=== PATIENT | male | born 1995 | race Caucasian/White ===

== ENCOUNTER 2018-05-23 15:22 | Emergency (ER) | payer BC ==
[2018-05-23] MEDS ORDERED: Meclizine 12.5 MG Tab PO ONE (16:03)
--- NOTE | 2018-05-23 21:12 | PN ---
DATE OF VISIT: SUBJECTIVE: The patient is a 22-year-old male who comes in today with a chief complaint of feeling funny. He has a hard time describing how he feels. Yesterday, he was out fishing. He notes he drank an estimated 25 beers, 5 shots of Rumple Minze and 6 vodka red bull shots. The patient notes he got up this morning, he threw up 3 times. He has drank 3 bottles of water to rehydrate himself, but he still feels funny. His friends are all telling him he might be having a heart attack that he has a little bit of pain in the left shoulder. He does not have chest pain. He is not short of breath. He does not have a fever. He does not have a cough. He does not have abdominal pain. He, in fact, really does not have any pain anywhere. He just feels funny. It is worse when he moves quickly. He is really having a difficult time describing how he feels. We have tried several things, the closest that he comes to is when you close your eyes when you are a kid and spin for a while and then open your eyes and you sort of tip to one side, feel slightly nauseated and off- balance. Essentially he is describing vertigo. ALLERGIES: NKDA. CURRENT MEDICATIONS: None. OBJECTIVE: GENERAL: On physical exam, he is alert, oriented, no apparent distress. VITAL SIGNS: Pulse is 81, blood pressure is 157/107, respirations 18, O2 saturation is 100% on room air. HEENT: Pupils are equal and reactive to light. Extraocular movements are intact. TMs are normal. Nares are clear. Throat is normal. Tongue is midline. NECK: Supple. HEART: Regular sinus rhythm without murmur. LUNGS: Clear. ABDOMEN: Soft, nontender. Positive bowel sounds. No hepatosplenomegaly. NEUROLOGIC: Nonfocal. Romberg is negative. ASSESSMENT: Vertigo, most likely benign positional vertigo. The patient was given a meclizine in the emergency room and 5 to take home along with a prescription of 25 more. He is currently living [place]. If he is not getting better over the next week or develops worsening symptoms, would have him seen at home. We did go ahead and obtain some labs including a CBC which was minimally elevated on the white count, but again the patient is afebrile. He did throw up 3 times this morning. White count was 11.6, hemoglobin and hematocrit were within the normal limit, but is slightly elevated at 17 and 48.2. I suspect the patient is still a little dehydrated. I have recommended he go get some Gatorade or pretty much anything other than alcohol and drink it. His comprehensive metabolic panel was pretty much within normal limits except for minimally elevated anion gap of 15.7, the normal being 15. Electrolytes were otherwise completely normal. BUN was 20, creatinine is 1.11. RD/MODL /[id number]
== END 2018-05-23 16:31 | disposition home or self-care (01) ==
LOC: LB.ED 15:22
DX: R42 Dizziness and giddiness (principal)
CPT/HCPCS: 36415; 80048; 85025; 99284; A9270